=== PATIENT | female | born 1955 | race Two or more races ===

== ENCOUNTER 2019-06-21 00:15 | Inpatient (IN) | payer OTHER ==
[~2019-06-21] VITALS: Ht 154.9 cm; Wt 98.0 kg
[2019-06-21] VITALS (7 sets, daily range): BP systolic 92–112; BP diastolic 53–84
--- NOTE | 2019-06-21 00:25 | NUR ---
BIBRA FOR C/O CP X 1-2 HOURS. PT A, OX4 , PALEST[place] SPEAKING. - SOB. -N/V, - H/A. PT WAS GOWNED UP AND PLACED ON A MONITOR . SATTING 92-93% ON R/A . PT WAS PLACED ON O2 AT 2LPM VIA NC . O2 SAT INCREASED TO 95%. WILL CONT TO MONITOR.
[2019-06-21 00:36] LABS: BASOPHILS # (AUTO) 0.1 /CMM (0.0-0.2); EOSINOPHILS % (AUTO) 1.6 % (0.0-6.0); HEMATOCRIT 44 % (33-45); HEMOGLOBIN 14.7 g/dL (11.5-14.8); LYMPHOCYTES # (AUTO) 2.5 /CMM (0.8-4.8); LYMPHOCYTES % (AUTO) 23.3 % (20.0-44.0); MEAN CORPUSCULAR HGB CONC 33 g/dl (31.0-36.0); MEAN CORPUSCULAR VOLUME 89 fL (82-100); MONOCYTES # (AUTO) 0.7 /CMM (0.1-1.30); MONOCYTES % (AUTO) 6.6 % (2.0-12.0); NEUTROPHILS # (AUTO) 7.1 /CMM (1.8-8.9); NEUTROPHILS % (AUTO) 67.5 % (43.0-81.0); PLATELET COUNT (AUTO) 327 /CMM (150-450); RED BLOOD CELL COUNT(AUTO) 4.96 MIL/uL (4.0-5.2); WHITE BLOOD COUNT (AUTO) 10.6 K/uL (4.3-11.0)
[2019-06-21 00:50] LABS: CARBON DIOXIDE 31 mmol/L (21-32); CHLORIDE 102 mmol/L (98-107); SODIUM SERUM 140 mmol/L (136-145)
[2019-06-21 00:51] LABS: CALCIUM, SERUM 8.8 mg/dL (8.5-10.1); CREATININE 1.1 mg/dL (0.6-1.3); GLUCOSE 135 mg/dL (74-106); UREA NITROGEN, BLOOD 23 mg/dL (7-18)
[2019-06-21 00:52] LABS: POTASSIUM 2.6 mmol/L (3.5-5.1)
[2019-06-21 01:01] LABS: B-TYPE NATRIURETIC PEPTIDE 67 PG/ML (0-125)
[2019-06-21] MEDS ORDERED: POTASSIUM CL. PREMIX PERIPHER. 50 ML ONE (01:14)
[2019-06-21] MEDS ORDERED: METOPROLOL TARTRATE 25 MG TABLET ONE (01:15)
[2019-06-21] MEDS ORDERED: POTASSIUM CHLORIDE 20 MEQ TAB.PRT.SR PO ONE ×2 (01:15→01:30)
[2019-06-21] MEDS ORDERED: POTASSIUM CL. PREMIX PERIPHER. 50 ML IV SCH (01:30)
[2019-06-21] MEDS ORDERED: METOPROLOL TARTRATE 25 MG TABLET PO ONE (01:30)
--- NOTE | 2019-06-21 01:30 | NUR ---
BP: 109/52, LOW BP WAS REPORTED TO THE MD. W/ A NEW ORDER TO HOLD THE LOPRESSOR.
--- NOTE | 2019-06-21 01:39 | NUR ---
DR. FAN ON THE PHONE WITH DR. TRAN
[2019-06-21] MEDS ORDERED: ATOR40TA PO (01:41)
[2019-06-21] MEDS ORDERED: OMEP20TA5 PO (01:41)
[2019-06-21] MEDS ORDERED: AMLO10TA7 PO (01:41)
[2019-06-21] MEDS ORDERED: RIVA10TA PO (01:41)
[2019-06-21] MEDS ORDERED: METO-358 PO (01:41)
--- NOTE | 2019-06-21 01:45 | NUR ---
BED ASSIGNMENT TELE [id number]
--- NOTE | 2019-06-21 01:54 | NUR ---
report given to anam on third floor
--- NOTE | 2019-06-21 02:12 | NUR ---
PT WAS TRANSFERRED TO THE THIRD FLOOR UNDER ACLS.
[2019-06-21] MEDS ORDERED: MAGNESIUM HYDROXIDE 30 ML UDC PO PRN (02:30)
[2019-06-21] MEDS ORDERED: MORPHINE SULFATE INJ 2 MG/ML DISP.SYRIN IV PRN (02:30)
[2019-06-21] MEDS ORDERED: MAG HYDROX/AL HYDROX/SIMETH 30 ML UDC PO PRN (02:30)
[2019-06-21] MEDS ORDERED: ZOLPIDEM TARTRATE 5 MG TABLET PO PRN (02:30)
[2019-06-21] MEDS ORDERED: Z GUARD REMEDY 2 OZ OINT TP PRN (02:30)
[2019-06-21] MEDS ORDERED: ONDANSETRON HCL/PF 4 MG/2 ML VIAL IVP PRN (02:30)
[2019-06-21] MEDS ORDERED: NITROGLYCERIN 0.4 MG/TAB BOTTLE SL PRN (02:30)
[2019-06-21] MEDS ORDERED: ACETAMINOPHEN 325 MG TABLET PO PRN (02:30)
--- NOTE | 2019-06-21 02:30 | NUR ---
ADMISSION NOTES: RECEIVED REPORT FROM BUSHRA BRIGHT. PT WAS BROUGHT OT THE UNIT AT 0205AM, VIA GURNEY. PT ABLE TO AMBULATE AND TRANSFER HERSELF TO BED. A/O X4, ON 2L OXYGEN VIA NC RESPIRATIONS EVEN AND UNLABORED. PT RECEIVED WITH ONGOING KCL REPLACEMENT ABOUT TO BE FINISHED, IV ACCESS RIGHT AC G 18. USED [employer] CLINICAL TRAINING COORDINATOR PT IS [place] SPEAKING ONLY, ID NO. [id number]. ADMISSION QUESTIONNAIRE ANSWERED BY PT HERSELF. ORIENTED PT TO UNIT POLICY AND HOURLY ROUNDING, USE OF CALL LIGHT SYSTEM. PT BROUGHT HER MEDICATIONS WITH HER, CONSENT GIVEN, WILL BRING ALL MEDS TO PHARMACY PER HOSPITAL PROTOCOL. VERIFIED WITH PT THAT SHE'S BEEN TAKING ALL THE SAID MEDICATION DAILY. 'S NUMBER [phone]/STEVE. VS TAKEN AND RECORDED. DISCUSSED PLAN OF CARE TO PT. PT C/O CHEST PAIN 8/10 RADIATING TO LOWER BACK.
[2019-06-21] MEDS ORDERED: CHLO25TA2 PO (02:58)
--- NOTE | 2019-06-21 03:05 | NUR ---
RN NOTES: USED [employer] FINANCIAL SERVICES OFFICER ID NO. [id number], RT CAME WILL DO EKG.
--- NOTE | 2019-06-21 03:15 | NUR ---
RN NOTES: RELAYED TO DR FLANAGAN REGARDING EKG RESULT, AFIB WITH RVR, HR 107. ALSO MADE MD AWARE ABOUT PT'S BP, AND PAIN MEDS PREFERENCE/NORCO. PT ON TELE MONITORING AFIB HR 107.
[2019-06-21] MEDS: HYDROCODONE/APAP 5/325MG TABLET PO PRN ×2 (03:28→08:50)
--- NOTE | 2019-06-21 03:28 | NUR ---
PRN NORCO: PT C/O 10/31 MIDSTERNAL CHEST PAIN RADIATING TO LOWER BACK, OFFERED MORPHINE, NITRO SL, BUT PT REFUSED, ONLY WANTS PILL/NORCO. PRN NORCO 5/325 MG TAB PO ADMINISTERED TO PT AT THIS TIME. VS TAKEN AND RECORDED PRIOR TO ADMINISTERING MEDS. ALL CONVERSATION TRANSLATED IN TANZANIAN LANGUAGE USING [employer] ELECTRONIC IMAGING SYSTEM OPERATOR. ID # [id number]. WILL CONTINUE TO MONITOR AND REASSESS PT.
--- NOTE | 2019-06-21 03:38 | NUR ---
RN NOTES: SPOKED WITH DR FLANAGAN TELEPHONE ORDER TO DO STAT TROPONIN NOW, ODKYLAH READ BACK VERIFIED AND CARRIED OUT. CONTACTED LAB SPOKED WITH HUYEN, INFORMED ABOUT STAT TROPONIN, PER HUYEN HE WILL ALSO DRAW AM LABS NOW.
--- NOTE | 2019-06-21 03:45 | NUR ---
RN NOTES: QUALITY COORDINATOR CAME TO DRAW BLOOD
[2019-06-21 04:38] LABS: THYROID STIMULATING HORMONE 1.251 uIU/mL (0.358-3.74)
--- NOTE | 2019-06-21 04:39 | NUR ---
RN NOTES: TROPONIN RESULT CAME BACK , IT'S NEGATIVE
--- NOTE | 2019-06-21 04:57 | NUR ---
RN NOTES: NOTIFIED DR FLANAGAN REGARDING PT'S LATEST BP AND TROP RESULT INCLUDING AM LABS.
--- NOTE | 2019-06-21 06:50 | NUR ---
END OF SHIFT REPORT: PT REMAINS ON AFIB HR 102, SLEEPING, RESPONSIVE WITH TACTILE STIMULI, IV ACCESS REMAINS PATENT AND FLUSHING WELL, ON HL, NO S/S OF IV INFILTRATION NOTED. AWAITING FOR CARDIO CONSULT. SAFETY PRECAUTIONS FOR FALL REMAINS ENGAGED, CALL LIGHT IN REACH, WILL ENDORSE TO DAY RN FOR CONTINUITY OF CARE.
--- NOTE | 2019-06-21 07:35 | NUR ---
TELE/RN NOTE THE PATIENT IS RECEIVED IN BED. THE PATIENT IS ALERT AND ORIENTED X4. IN ROOM AIR AND DENIES SOB. RESPIRATION REGULAR AND UNLABORED. DENIES PAIN. THE PATIENT IN NO APPARENT DISTRESS. EXTERNAL TELE BOX READING SI AFIB WITH 104. RAC G 18 PATENT AND SALINE LOCKED. BED LOW AND LOCKED. SIDE RAILS UP X3. CALL LIGHT WITHIN REACH. WILL CONTINUE TO MONITOR.
[2019-06-21 08:25] LABS: BASOPHILS # (AUTO) 0.1 /CMM (0.0-0.2); BASOPHILS % (AUTO) 0.9 % (0.0-2.0); EOSINOPHILS % (AUTO) 1.6 % (0.0-6.0); HEMATOCRIT 41 % (33-45); HEMOGLOBIN 13.6 g/dL (11.5-14.8); LYMPHOCYTES # (AUTO) 2.3 /CMM (0.8-4.8); MEAN CORPUSCULAR HGB CONC 34 g/dl (31.0-36.0); MEAN CORPUSCULAR VOLUME 88 fL (82-100); MONOCYTES # (AUTO) 0.6 /CMM (0.1-1.30); MONOCYTES % (AUTO) 6.8 % (2.0-12.0); NEUTROPHILS # (AUTO) 5.4 /CMM (1.8-8.9); NEUTROPHILS % (AUTO) 63.7 % (43.0-81.0); PLATELET COUNT (AUTO) 279 /CMM (150-450); RED BLOOD CELL COUNT(AUTO) 4.63 MIL/uL (4.0-5.2); WHITE BLOOD COUNT (AUTO) 8.5 K/uL (4.3-11.0)
[2019-06-21] MEDS: IV NS 0.9% 1,000 ML IV SCH ×2 (08:28→13:45)
[2019-06-21] MEDS: ATORVASTATIN 40 MG TABLET PO SCH (08:31)
[2019-06-21] MEDS: METOPROLOL TARTRATE 25 MG TABLET PO SCH ×2 (08:31→20:04)
[2019-06-21 08:32] LABS: CALCIUM, SERUM 8.6 mg/dL (8.5-10.1); CREATININE 0.9 mg/dL (0.6-1.3); POTASSIUM 3.2 mmol/L (3.5-5.1)
[2019-06-21] MEDS: PANTOPRAZOLE 40 MG TABLET.DR PO SCH (08:32)
[2019-06-21 08:41] LABS: ALBUMIN 2.9 g/dL (3.4-5.0); BILIRUBIN,TOTAL 0.4 mg/dL (0.2-1.0); PHOSPHORUS 3.5 mg/dL (2.5-4.9); TOTAL PROTEIN, SERUM 6.3 g/dL (6.4-8.2)
[2019-06-21] MEDS ORDERED: ASPIRIN EC 81 MG TABLET.DR PO SCH (09:00)
[2019-06-21] MEDS: POTASSIUM CHLORIDE 20 MEQ TAB.PRT.SR PO SCH ×2 (12:39→13:45)
[2019-06-21] MEDS ORDERED: RIVAROXABAN 10 MG TABLET PO SCH (18:00)
--- NOTE | 2019-06-21 18:17 | NUR ---
MS/RN NOTE THE PATIENT IS IN BED. ALERT AND ORIENTED X4. DENIES SOB. RESPIRATION REGULAR AND UNLABORED. PATIENT IS IN ROOM AIR. DENIES PAIN. THE PATIENT IN NO APPARENT DISTRESS. RAC G 18 PATENT AND SALINE LOCKED. BED LOW AND LOCKED. SIDE RAILS UP X3. CALL LIGHT WITHIN REACH. WILL ENDORSE TO DISPLAY MECHANIC.
--- NOTE | 2019-06-21 18:19 | NUR ---
MS/RN NOTE CALLED DR WATT`S OFFICE X3 AND THE CLINIC [place] CLOSED.
--- NOTE | 2019-06-21 19:45 | NUR ---
MS RN NOTES PATIENT LAYING IN BED, BED IS IN LOWEST LOCKED POSITION WITH SIDE RAILS UP X3. CALL LIGHT IS WITHIN REACH. APPEARS COMFORTABLE/ NO COMPLAINTS OF PAIN AT THIS TIME. NO SOB/ ACUTE RESPIRATORY DISTRESS NOTED. WILL CONTINUE TO MONITOR.
--- NOTE | 2019-06-22 06:21 | NUR ---
MS RN CLOSING NOTES PATIENT SLEEPING IN BED. CALL LIGHT IS WITHIN REACH. APPEARS COMFORTABLE/ NO COMPLAINTS OF PAIN AT THIS TIME. ON NASAL CANULA 2L, NO SOB/ ACUTE RESPIRATORY DISTRESS NOTED. IV ON RIGHT AC #18G IS INTACT AND PATENT. BED IS IN LOWEST LOCKED POSITION WITH SIDE RAILS UP X2. WILL ENDORSE TO AM NURSE.
[2019-06-22 06:41] LABS: BASOPHILS # (AUTO) 0.1 /CMM (0.0-0.2); BASOPHILS % (AUTO) 0.7 % (0.0-2.0); EOSINOPHILS % (AUTO) 2.3 % (0.0-6.0); HEMATOCRIT 39 % (33-45); HEMOGLOBIN 12.9 g/dL (11.5-14.8); LYMPHOCYTES # (AUTO) 2.2 /CMM (0.8-4.8); LYMPHOCYTES % (AUTO) 30.1 % (20.0-44.0); MEAN CORPUSCULAR HGB CONC 33 g/dl (31.0-36.0); MEAN CORPUSCULAR VOLUME 89 fL (82-100); MONOCYTES # (AUTO) 0.5 /CMM (0.1-1.30); MONOCYTES % (AUTO) 6.9 % (2.0-12.0); NEUTROPHILS # (AUTO) 4.5 /CMM (1.8-8.9); PLATELET COUNT (AUTO) 258 /CMM (150-450); RED BLOOD CELL COUNT(AUTO) 4.44 MIL/uL (4.0-5.2); WHITE BLOOD COUNT (AUTO) 7.4 K/uL (4.3-11.0)
[2019-06-22 06:52] LABS: CALCIUM, SERUM 8.2 mg/dL (8.5-10.1); CREATININE 0.7 mg/dL (0.6-1.3); MAGNESIUM 1.8 mg/dL (1.8-2.4); POTASSIUM 3.3 mmol/L (3.5-5.1)
--- NOTE | 2019-06-22 07:37 | NUR ---
MS/RN OPENING NOTE Patient is resting in bed, A/O x4, [place] speaking, blue phone at the bedside. Patient is in no acute distress, saturating 95% on 2L NC. IV line in the RAC #18g s/l. is clean and intact. Bed is in lowest position, side rails x2 in upright position, call light is within reach and patient is aware of how to call for assistance when needed. Will continue with plan of care.
[2019-06-22 08:00] VITALS: BP 112/65
[2019-06-22] MEDS: ATORVASTATIN 40 MG TABLET PO SCH (08:13)
[2019-06-22 08:14] VITALS: BP 112/65
[2019-06-22] MEDS: METOPROLOL TARTRATE 25 MG TABLET PO SCH (08:14)
[2019-06-22] MEDS: PANTOPRAZOLE 40 MG TABLET.DR PO SCH (08:14)
[2019-06-22] MEDS: POTASSIUM CHLORIDE 20 MEQ TAB.PRT.SR PO SCH ×2 (09:21→10:48)
[2019-06-22] MEDS ORDERED: POTA20PA3 PO (10:33)
[2019-06-22] MEDS ORDERED: METO25TA20 PO (10:33)
--- NOTE | 2019-06-22 12:19 | NUR ---
MS/RN NOTE Patient is medically stable for discharge, A/O x4, in no acute distress, no SOB noted. Vital signs WNL. DC instructions provided, patient verbalized understanding. Skin assessed, and skin remains intact. IV removed, ID band removed. All belongings are with patient. All patient needs met, all due meds given. MD aware of DC, charge nurse aware. Accompanied patient downstairs and she was picked up by a friend via private car.
== END 2019-06-22 12:30 | disposition home or self-care (01) | DRG 201 ==
LOC: ER 00:16 → TELE 01:49 → MED 10:27
PROVIDERS: ADMIT Student in an Organized Health Care Education/Training Program; ATTEND Student in an Organized Health Care Education/Training Program
DX: I48.91 Unspecified atrial fibrillation (principal); N17.9 Acute kidney failure, unspecified; D68.69 Other thrombophilia; E44.0 Moderate protein-calorie malnutrition; E66.01 Morbid (severe) obesity due to excess calories; E88.09 Other disorders of plasma-protein metabolism, not elsewhere classified; Z68.41 Body mass index [BMI] 40.0-44.9, adult; E86.0 Dehydration; E87.6 Hypokalemia; I10 Essential (primary) hypertension; F17.210 Nicotine dependence, cigarettes, uncomplicated; R73.03 Prediabetes; Z79.01 Long term (current) use of anticoagulants
CPT/HCPCS: 36415; 71045-TC; 80048-TC; 80053-TC; 80061-TC; 83735-TC; 83880; 84100-TC; 84443-TC; 84484-TC; 85025-TC; 87081-TC; 93307-TC; G0378; J3480; J7030; J7040